=== PATIENT | male | born 1955 | race Caucasian/White ===

== ENCOUNTER 2017-05-08 06:20 | Day surgery (SDC) | payer OTHER ==
[~2017-05-08] VITALS: Ht 180.3 cm; Wt 87.1 kg
[~2017-05-08 06:20] MED LIST: ADVAIR 250/501 DISK INH; HYDROCODON-ACE1 EAC7 PO
[2017-05-08 07:46] VITALS: BP 130/83; Ht 180.3 cm; Wt 87.1 kg
[2017-05-08 08:13] LABS: HEMATOCRIT 43.4 % (42.0-54.0); MCH 30.9 pg (26.0-34.0); MCHC 34.6 g/dL (31.0-37.0); MCV 89.3 fL (80.0-100.0); MEAN PLATELET VOLUME 9.7 fL (7.4-10.4); RBC 4.86 10x6/uL (4.20-6.10); WBC 7.3 10x3/uL (4.8-10.8)
[2017-05-08] MEDS ORDERED: PERCOCET 10/3251 TA1 PO (10:33)
--- NOTE | 2017-05-08 13:01 | NUR ---
1250 DC TEACHING COMPLETE PRESCRIP GIVEN TO . 1255 DC ESCORTED OUT VIA WC W/ DRIVING
--- NOTE | 2017-05-09 16:21 | OP ---
PATIENT NAME: HODA GORDON MEDICAL RECORD: [id number] :57 LOCATION:[facility] ADMISSION DATE: SURGEON: MEL CAO MD DATE OF OPERATION: 05/08/2017 Orthopedic Surgery Operative Note PREOPERATIVE DIAGNOSES: 1. Rotator cuff tear of the right shoulder. 2. Impingement syndrome of the right shoulder. 3. Acromioclavicular arthritis of the right shoulder. POSTOPERATIVE DIAGNOSES: 1. Rotator cuff tear of the right shoulder. 2. Impingement syndrome of the right shoulder. 3. Acromioclavicular arthritis of the right shoulder. PROCEDURES: 1. Arthroscopic rotator cuff repair of the right shoulder. 2. Arthroscopic distal clavicle excision of the right shoulder - 1 cm through separate incision. 3. Arthroscopic subacromial decompression with acromioplasty and bursectomy. SURGEON: Mel Cao MD ANESTHESIA: General. INTRAOPERATIVE COMPLICATIONS: None. SUMMARY OF PATHOLOGIC FINDINGS: Consistent with the preoperative MRI and diagnosis, the patient had a rotator cuff tear extending mid substance of the subscapularis to the posterior aspect of the supraspinatus tendon, also a type 3 acromion with excoriation of the coracoacromial ligament as well as a grade IV acromioclavicular arthritis with inferior osteophytes. OPERATIVE SUMMARY IN DETAIL: After obtaining the appropriate preoperative orthopedic surgery consent as well as anesthetic consultation, evaluation and clearance, the patient was brought and placed on the operating table in supine position. After adequate general laryngeal mask airway was administered, the patient was placed in a left lateral decubitus position. All pressure points were well padded to include down leg peroneal nerve pad as well as axillary roll. The patient was held firmly to the operating table using the vacuum pack suction system. Right upper extremity and shoulder were then prepped and draped in a routine sterile fashion. The arm was held in the Arthrex traction boom at 30 degrees of forward flexion, 30 degrees of abduction with 10 pounds of traction laterally. Arthroscopy was established in the glenohumeral joint from a posterior portal. Anterior portal was established in the anterior safe interval. Diagnostic arthroscopy did reveal the above findings. Transrotator cuff portal was created for decortication of the medial aspect of the greater tuberosity as well as the medial aspect of the lesser tuberosity and debridement of the articular aspect of the rotator cuff fibers. Attention was then turned to the subacromial space. Dayhoit tissue ablation system was utilized to denude the undersurface of the acromion of all soft tissue elements including released the coracoacromial ligament. A 5-0 barrel bur was used to perform acromioplasty at the level of acromioclavicular joint. Having completed this, a OPERATIVE REPORT [id number] HODA GORDON separate arthroscopic portal under direct arthroscopic visualization, the distal clavicle was excised for 1 cm using the 5-0 barrel bur. Lastly, further decortication was carried out on the greater tuberosity. A SpeedBridge was used for supraspinatus fixation and a 5.5 SwiveLock as well as a 4.7 SwiveLock with FiberTape were used for subscapularis fixation. This resulted in excellent anatomic repair of the rotator cuff. Having completed this, arthroscopy portals were closed in routine interrupted fashion. Sterile dressings were applied. The patient was awakened, taken to recovery in stable condition. All final needle and sponge counts were correct. TRANSINT:[id number] Voice Confirmation ID: [id number] DOCUMENT ID: [id number] MEL CAO MD at 1621 CC: [id number] DICTATION DATE: 05/08/17 1031 ARM MAKER: 05/08/17 1756 [facility] 05/08/17 [facility] [address] [place] [address]
== END 2017-05-08 12:55 | disposition home or self-care (01) ==
LOC: D.OPS 06:20 → D.PAN 09:15 → D.OPS 12:55
PROVIDERS: Anesthesiology
DX: M75.101 Unspecified rotator cuff tear or rupture of right shoulder, not specified as traumatic (principal); M75.41 Impingement syndrome of right shoulder; M19.011 Primary osteoarthritis, right shoulder; J45.909 Unspecified asthma, uncomplicated; Z01.812 Encounter for preprocedural laboratory examination